=== PATIENT | male | born 1980 | race Caucasian/White ===

== ENCOUNTER → 2024-10-09 15:48 | Outpatient (REF) | payer OTHER, SELFPAY | LOC: RAD 15:48 | PROVIDERS: ATTENDING PHYSICIAN Otolaryngology; FAMILY PHYSICIAN Family Medicine | DX: C07 Malignant neoplasm of parotid gland (principal); C08.9 Malignant neoplasm of major salivary gland, unspecified | CPT/HCPCS: 70491; 71250; Q9967 ==